=== PATIENT | female | born 1990 | race African-American/Black ===

== ENCOUNTER 2018-07-06 08:29 | Emergency (ER) | payer SELFPAY ==
[~2018-07-06] VITALS: Ht 157.5 cm; Wt 63.6 kg
[2018-07-06 08:47] VITALS: Ht 157.5 cm; Wt 63.6 kg
[2018-07-06] MEDS ORDERED: AMOXICILLIN500 M1 PO (10:36)
[2018-07-06] MEDS ORDERED: CORTISPORIN OTI10 M1 EACH EAR (10:37)
[2018-07-06 11:15] VITALS: BP 154/72
== END 2018-07-06 11:17 | disposition home or self-care (01) ==
LOC: D.ER 08:29
DX: H66.91 Otitis media, unspecified, right ear (principal); J30.9 Allergic rhinitis, unspecified; F17.200 Nicotine dependence, unspecified, uncomplicated

== ENCOUNTER 2018-08-30 17:01 | Emergency (ER) | payer SELFPAY ==
[~2018-08-30] VITALS: Ht 157.5 cm; Wt 61.4 kg
[~2018-08-30 17:01] MED LIST: AMOXICILLIN500 M1 PO; CORTISPORIN OTI10 M1 EACH EAR
[2018-08-30 17:04] VITALS: Ht 157.5 cm; Wt 61.4 kg
[2018-08-30 17:41] LABS: BASOPHILS 0.2 % (0-2); EOSINOPHILS 0.6 % (0-7); HEMATOCRIT 39.8 % (36.0-48.0); IMMATURE GRANULOCYTES 0.1 % (0-5); LYMPHOCYTES 27.3 % (15-50); MCH 31.5 pg (26.0-34.0); MCHC 35.2 g/dL (31.0-37.0); MCV 89.4 fL (80.0-100.0); MEAN PLATELET VOLUME 11.2 fL (7.4-10.4); MONOCYTES 9.4 % (2-11); NEUTROPHILS 62.4 % (40-80); PLATELET COUNT 202 10x3/uL (130-400); RBC 4.45 10x6/uL (4.00-5.40); RDW 12.6 % (11.5-14.5); WBC 10.5 10x3/uL (4.8-10.8)
[2018-08-30 17:48] LABS: APPEARANCE HAZY (CLEAR); BILIRUBIN 1+ (NEGATIVE); COLOR DK YELLOW (YELLOW); GLUCOSE 50 mg/dL (NEGATIVE); KETONE SMALL mg/dL (NEGATIVE); NITRITE NEGATIVE (NEGATIVE); PROTEIN 1+ mg/dL (NEGATIVE); SPECIFIC GRAVITY 1.025 (1.005-1.020); UROBILINOGEN NORMAL (NORMAL)
[2018-08-30 17:50] LABS: BACTERIA MODERATE /hpf (NONE SEEN); MUCUS <1+ /lpf (NONE SEEN); RED CELLS - URINE 0-5 /hpf (0-5); SPERMATOZOA PRESENT /hpf (NONE SEEN)
[2018-08-30 17:52] LABS: GRANULAR CAST 0-5 /lpf (NONE SEEN)
[2018-08-30 18:00] LABS: ALBUMIN 4.4 g/dL (3.4-5.0); ALKALINE PHOSPHATASE 51 U/L (46-116); ALT (SGPT) 26 U/L (10-68); BILIRUBIN - TOTAL 0.41 mg/dL (0.2-1.3); CALC OSMOLALITY 274 mosm/kg (275-300); CALCIUM 9.6 mg/dL (8.5-10.1); CARBON DIOXIDE 23.2 mmol/L (21.0-32.0); CHLORIDE - SERUM 98 mmol/L (98-107); CREATININE - SERUM 0.8 mg/dL (0.6-1.3); GLUCOSE 96 mg/dL (74-106); POTASSIUM - SERUM 3.7 mmol/L (3.5-5.1); PROTEIN - SERUM 8.6 g/dL (6.4-8.2); SODIUM 136 mmol/L (136-145); UREA NITROGEN 21 mg/dL (7-18); eGFR NON AFRICAN AMERICAN 89 mL/min (90-120)
[2018-08-30 18:10] LABS: MAGNESIUM - SERUM 2.1 mg/dL (1.8-2.4); T4 THYROXINE 12.1 ug/dL (4.7-13.3); THYROID STIMULATING HORMONE 0.95 uIU/mL (0.36-3.74)
[2018-08-30] MEDS ORDERED: MACROBID100 MG PO (18:11)
[2018-08-30 18:32] LABS: UDS - AMPHET POSITIVE QUAL (NEGATIVE); UDS - BARB NEGATIVE QUAL (NEGATIVE); UDS - BENZO POSITIVE QUAL (NEGATIVE); UDS - COCAINE NEGATIVE QUAL (NEGATIVE); UDS - OPIATE NEGATIVE QUAL (NEGATIVE); UDS - PCP NEGATIVE QUAL (NEGATIVE); UDS - THC POSITIVE QUAL (NEGATIVE)
[2018-08-30] MEDS ORDERED: ULTRAM50 MG PO (18:44)
[2018-08-30 19:08] VITALS: BP 120/76
[2018-09-03 15:26] LABS: SPE - A/G RATIO 1.2 (0.7-1.7); SPE - ALBUMIN 4.4 g/dL (2.9-4.4); SPE - ALPHA-1 GLOBULIN 0.2 g/dL (0.0-0.4); SPE - ALPHA-2 GLOBULIN 0.8 g/dL (0.4-1.0); SPE - BETA GLOBULIN 1.2 g/dL (0.7-1.3); SPE - GAMMA GLOBULIN 1.6 g/dL (0.4-1.8); SPE - M-SPIKE Not Observed g/dL (Not Observed); SPE - TOTAL PROTEIN 8.2 g/dL (6.0-8.5)
== END 2018-08-30 19:09 | disposition home or self-care (01) ==
LOC: D.ER 17:01
PROVIDERS: Emergency Medicine
DX: F41.9 Anxiety disorder, unspecified (principal); F19.10 Other psychoactive substance abuse, uncomplicated; R77.9 Abnormality of plasma protein, unspecified; R00.0 Tachycardia, unspecified; F17.200 Nicotine dependence, unspecified, uncomplicated